=== PATIENT | male | born 1970 | race Caucasian/White ===

== ENCOUNTER 2021-10-12 18:47 | Outpatient (REF) | payer MEDICAID, SELFPAY ==
[2021-10-12 16:22] LABS: Abs Immature Grans 0.01 10^3/uL (0.0-0.06); Absolute Basophil Count 0.04 10^3/uL (0.0-0.2); Absolute Eosinophil Count 0.05 10^3/uL (0.0-0.7); Absolute Monocyte Count 0.37 10^3/uL (0.1-0.8); Absolute Neutrophil Count 2.35 10^3/uL (1.2-6.7); Basophils % 0.8; Eosinophils % 1.1; HCT 44.2 % (40.0-50.0); HGB 14.9 g/dL (13.5-17.5); Immature Grans % 0.2; Lymphocytes % 40.3; MCHC 33.7 % (32.0-36.0); MCV 86 fL (80-95); MPV 10.3 fL (8.0-11.0); Monocytes % 7.8; Neutrophils % 49.8; Platelet Count 234 10^3/uL (130-400); RBC 5.14 10^6/uL (4.36-5.78); RDW 12.2 % (11.8-14.1); RDW-SD 38.2 fL; WBC 4.72 10^3/uL (4.4-10.8)
[2021-10-12 16:57] LABS: ALT 39 U/L (16-63); AST 31 U/L (15-37); Albumin 4.1 g/dL (3.4-5.0); Alkaline Phosphatase 55 U/L (46-116); Anion Gap 9.8 mmol/L (3-11); BUN 19 mg/dL (7-18); Bilirubin, Total 0.8 mg/dL (0.2-1.0); CO2 27.2 mmol/L (21.0-32.0); CREATININE 1.3 mg/dL (0.70-1.30); Calcium 8.9 mg/dL (8.5-10.1); Calculated LDL 145 mg/dL (<100); Chloride 104 mmol/L (98-107); Cholesterol 213 mg/dL (<200); Glucose 115 mg/dL (74-106); HDL Cholesterol 50 mg/dL (40-60); Sodium 141 mmol/L (136-145); Total Protein 7.4 g/dL (6.4-8.2); Triglyceride 94 mg/dL (<150)
== END 2021-10-12 18:48 | disposition home or self-care (01) ==
LOC: NCHCN 18:47
PROVIDERS: Visit Provider Nurse Practitioner Family
DX: I10 Essential (primary) hypertension (principal); E78.1 Pure hyperglyceridemia; G43.909 Migraine, unspecified, not intractable, without status migrainosus; M25.561 Pain in right knee; Z71.89 Other specified counseling
CPT/HCPCS: 80053; 80061; 85025

== ENCOUNTER 2021-12-04 17:55 | Emergency (ER) | payer MEDICAID, SELFPAY ==
[2021-12-04] VITALS (8 sets, daily range): BP systolic 117–128; BP diastolic 72–98; PULSE 58–72; RESP 20; TEMP 36.4; O2SAT 95–99
--- NOTE | 2021-12-04 18:00 | RT.EKG_ITS ---
APPROVED REPORT Exam: Resting ECG Reason for Exam: Blurry vision, lightheadedness Patient Location: E HR:64 bpm ECG Measurements Heart Rate 64 AXIS VA 226 P 26 QRSd 93 QRS 40 QT 378 T 30 QTc 392 Conclusion Sinus rhythm...normal P axis, V-rate 60- 99 Prolonged VA interval...VA >210, V-rate 50- 90 ST elev, probable normal early repol pattern...ST elevation, age<55. Sinus. Normal axis. No STEMI. I have reviewed and interpreted ECG and agree with software generated interpretation.
--- NOTE | 2021-12-04 18:30 | DI.CT_ITS ---
Exam(s) CT HEAD WO EXAM: CT HEAD WO CLINICAL HISTORY: Dizziness. TECHNIQUE: Imaging Protocol: Axial computed tomography images with coronal and sagittal reformatted images were created and reviewed COMPARISON: No exams were available for comparison FINDINGS: There are no skull fractures. There is no fluid in the visualized paranasal sinuses. There is no evidence of intracranial hemorrhage, mass effect, or shift of midline structures. There are no extra-axial fluid collections. The ventricles are not enlarged or shifted and there is no blo od within the ventricular system nor within the basal cisterns. IMPRESSION: No acute intracranial findings on this noninfused CT scan of the brain. Called by myself to ER physician. RADIATION DOSE DELIVERED: 906.85mGy.cm Total DLP DATA REPOSITORY: All CT scans at this facility are submitted to the National Radiology Data Registry (NRDR) Dose Index Registry (DIR) with the [employer] (ACR). RADIATION OPTIMIZATION: All CT scans at this facility use at least one of these dose optimization te chniques: automated exposure control; mA and/or kV adjustment per patient size (includes targeted exa ms where dose is matched to clinical indication); or iterative reconstruction.
[2021-12-04 18:34] LABS: Abs Immature Grans 0.02 10^3/uL (0.0-0.06); Absolute Basophil Count 0.03 10^3/uL (0.0-0.2); Absolute Eosinophil Count 0.06 10^3/uL (0.0-0.7); Absolute Lymphocyte Count 3.11 10^3/uL (1.2-3.4); Absolute Monocyte Count 0.49 10^3/uL (0.1-0.8); Absolute Neutrophil Count 2.84 10^3/uL (1.2-6.7); Basophils % 0.5; Eosinophils % 0.9; HCT 41.4 % (40.0-50.0); HGB 14.4 g/dL (13.5-17.5); Immature Grans % 0.3; Lymphocytes % 47.5; MCH 29.4 pg (27.0-33.0); MCHC 34.8 % (32.0-36.0); MCV 85 fL (80-95); MPV 9.7 fL (8.0-11.0); Monocytes % 7.5; Neutrophils % 43.3; Platelet Count 233 10^3/uL (130-400); RBC 4.89 10^6/uL (4.36-5.78); RDW 12.5 % (11.8-14.1); WBC 6.55 10^3/uL (4.4-10.8)
--- NOTE | 2021-12-04 18:36 | ED.GENADUL_ITS ---
Discharge Plan Disposition Patient Disposition: HOME Condition: Stable Discharge Details Clinical Impression: Light-headedness Primary Care Provider: DEV GERARD ED Provider: Kathryn Rowan Home Meds and New Rx's Prescriptions: Continued propranolol 40 mg Tablet 40 mg PO DAILY sumatriptan 10 mg/actuation [place],Non-Aerosol 10 mg INTRANASAL PRN PRN Discharge Instructions Instructions: Lightheadedness (ED) Additional Instructions: At this time head CT is within normal limits your labs are largely within normal limits. Follow up with primary care provider in 3-5 days. Return to ED sooner if any worsening or concerns. Increase oral fluids. Referrals: DEV GERARD, WAREHOUSE WORKER [Primary Care Provider] - 5 days Discharge Data Discharge Date/Time-TO BE ENTERED AT DEPARTURE: 12/04/21 21:35 Medical Decision Making 51-year-old male presents to the ER with chief complaint of dizziness and lightheadedness since last night. He reports he does have a history of migraines and he thought that this was an onset of migraine took a sumatriptan and it did not affect his symptoms. He reports that symptoms have been constant. 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 Patient has a history of migraines and does take propranolol and sumatriptan for migraine preventative. Due to patient's age a cardiac work-up was ordered including EKG, serial troponin and head CT. He does have a benign exam. Initial troponin within normal limits, CBC shows no leukocytosis, BUN 21 creatinine 1.2 glucose 112 urinalysis within normal limits. CT head within normal limits. At this time patient has had a negative work-up a nd physical exam is not worrisome. Patient to be discharged home. Discussed home care, follow-up and strict return instructions. This text was generated using Tephaation system, please disregard any oddities of phrase or misspellings. Lab Data Lab results reviewed: Yes I reviewed the patient's lab results. Labs: Laboratory Tests Range/Units 12/04/21 12/04/21 12/04/21 18:20 18:20 20:40 WBC (4.4-10.8) 10^3/uL 6.55 RBC (4.36-5.78) 10^6/uL 4.89 Hgb (13.5-17.5) g/dL 14.4 Hct (40.0-50.0) % 41.4 MCV (80-95) fL 85 MCH (27.0-33.0) pg 29.4 MCHC (32.0-36.0) % 34.8 RDW (11.8-14.1) % 12.5 Plt Count (130-400) 10^3/uL 233 MPV (8.0-11.0) fL 9.7 Immature Gran % 0.3 Neutrophils % 43.3 Lymphocytes % 47.5 Monocytes % 7.5 Eosinophils % 0.9 Basophils % 0.5 Nucleated RBC % (0.0-0.3) % 0.0 Absolute Neutrophils (1.2-6.7) 10^3/uL 2.84 Absolute Lymphocytes (1.2-3.4) 10^3/uL 3.11 Absolute Monocytes (0.1-0.8) 10^3/uL 0.49 Absolute Eosinophils (0.0-0.7) 10^3/uL 0.06 Absolute Basophils (0.0-0.2) 10^3/uL 0.03 Sodium (136-145) mmol/L 140 Potassium (3.5-5.1) mmol/L 3.8 Chloride (98-107) mmol/L 103 Carbon Dioxide (21.0-32.0) mmol/L 28.6 Anion Gap (3-11) mmol/L 8.4 BUN (7-18) mg/dL 21 H Creatinine (0.70-1.30) mg/dL 1.2 Est GFR (CKD-EPI 2020) (mL/min/1.73m2) 72.76 Glucose (74-106) mg/dL 112 H Calcium (8.5-10.1) mg/dL 9.4 Magnesium (1.8-2.4) mg/dL 2.0 Total Bilirubin (0.2-1.0) mg/dL 0.5 AST (15-37) U/L 28 ALT (16-63) U/L 58 Alkaline Phosphatase (46-116) U/L 54 Troponin I (<or=60) ng/L < 50 Total Protein (6.4-8.2) g/dL 7.8 Albumin (3.4-5.0) g/dL 4.2 Urine Color (Yellow) Yellow Urine Clarity (Clear) Clear Urine pH (5-8) 5.5 Ur Specific [place] (1.005-1.025) >= 1.030 H Urine Protein (Negative) mg/dL Negative Urine Ketones (Negative) mg/dL Negative Urine Blood (Negative) Negative Urine Nitrite (Negative) Negative Urine Bilirubin (Negative) Negative Urine Urobilinogen (Up TO 0.2) EU/dL 0.2 Ur Leukocyte Esterase (Negative) Negative Urine Glucose (Negative) mg/dL Negative Range/Units 12/04/21 12/04/21 20:41 21:07 WBC (4.4-10.8) 10^3/uL RBC (4.36-5.78) 10^6/uL Hgb (13.5-17.5) g/dL Hct (40.0-50.0) % MCV (80-95) fL MCH (27.0-33.0) pg MCHC (32.0-36.0) % RDW (11.8-14.1) % Plt Count (130-400) 10^3/uL MPV (8.0-11.0) fL Immature Gran % Neutrophils % Lymphocytes % Monocytes % Eosinophils % Basophils % Nucleated RBC % (0.0-0.3) % Absolute Neutrophils (1.2-6.7) 10^3/uL Absolute Lymphocytes (1.2-3.4) 10^3/uL Absolute Monocytes (0.1-0.8) 10^3/uL Absolute Eosinophils (0.0-0.7) 10^3/uL Absolute Basophils (0.0-0.2) 10^3/uL Sodium (136-145) mmol/L Potassium (3.5-5.1) mmol/L Chloride (98-107) mmol/L Carbon Dioxide (21.0-32.0) mmol/L Anion Gap (3-11) mmol/L BUN (7-18) mg/dL Creatinine (0.70-1.30) mg/dL Est GFR (CKD-EPI 2020) (mL/min/1.73m2) Glucose (74-106) mg/dL Calcium (8.5-10.1) mg/dL Magnesium (1.8-2.4) mg/dL Total Bilirubin (0.2-1.0) mg/dL AST (15-37) U/L ALT (16-63) U/L Alkaline Phosphatase (46-116) U/L Troponin I (<or=60) ng/L Cancelled Total Protein (6.4-8.2) g/dL Albumin (3.4-5.0) g/dL Urine Color (Yellow) Cancelled Urine Clarity (Clear) Cancelled Urine pH (5-8) Cancelled Ur Specific [place] (1.005-1.025) Cancelled Urine Protein (Negative) mg/dL Cancelled Urine Ketones (Negative) mg/dL Cancelled Urine Blood (Negative) Cancelled Urine Nitrite (Negative) Cancelled Urine Bilirubin (Negative) Cancelled Urine Urobilinogen (Up TO 0.2) EU/dL Cancelled Ur Leukocyte Esterase (Negative) Cancelled Urine Glucose (Negative) mg/dL Cancelled HPI General Mode of arrival: ambulatory . Date/Time Provider Initiated Documentation: 12/04/21 18:05 . Limitations to Documentation: no limitations . Information obtained by: patient, RN notes reviewed and old records reviewed . HPI Narrative: 51-year-old male presents to the ER with chief complaint of dizziness and lightheadedness since last night. He reports he does have a history of migraines and he thought that this was an onset of migraine took a sumatriptan and it did not affect his symptoms. He reports that symptoms have been constant. 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 He denies any chest pain no shortness of breath no abdominal pain no problems urinating no nausea vomiting or diarrhea or any other associated symptoms. He denies any recent head injury. He is alert and oriented x4, no focal neurodeficits noted on exam. Related Data Home Medications Medication Instructions Recorded Confirmed propranolol 40 mg tablet 40 mg PO DAILY 12/04/21 12/04/21 sumatriptan 10 mg/actuation nasal 10 mg intranasal PRN PRN 12/04/21 12/04/21 spray Allergies Allergy/AdvReac Type Severity Reaction Status Date / Time No Known Allergies Allergy Unverified 12/04/21 18:02 General Stated Complaint: Dizzy/Sync EVIE: 3 Review of Systems All systems reviewed & are unremarkable except as noted in HPI and below Constitutional Constitutional: Denies headache(s) ENT Ears, Nose, Mouth, and Throat: Denies headache(s) Cardiovascular Cardiovascular: Reports lightheadedness Neurologic Neurologic: Reports as per HPI, Denies confusion, Denies headache(s), Denies lack of coordination, Denies localized weakness and Denies other visual disturbances Psychiatric Psychiatric: Denies confusion PFSH All Active Problems (Updated 12/04/21 @ 21:12 by Kathryn Rowan NP) Light-headedness (Acute) Medical History Migraine headache Surgical History History of knee replacement Social History Smoking/Tobacco Use Status: Never Smoking risk assessment performed?: Yes Alcohol Intake: current Alcohol Intake frequency: a few times a month Drug use: Never Substance use type: does not use Do you feel safe at home: Yes Do you feel safe in your relationship?: Yes Exam Narrative Exam Narrative: Constitutional: Alert and oriented x3. Appears stated age. Normal body habitus. Head: Normocephalic, no trauma. Eyes: Pupils PERRL, Red reflex noted, EOM's intact. Eyelids symmetrical without lesions, discharge, or swelling. ENT: Bilateral TM's WNL, External ear normal to inspection, no mastoid TTP, swelling, or erythema, Nasal turbinates WNL, no nasal discharge. Normal dentition, Posterior pharynx WNL, no exudate. Chest: RRR, Normal S1, S2, distal pulses intact. Resp: Lungs clear to auscultation bilaterally, no wheezes, rales, or rhonchi. Abdomen: Soft, non-distended, Normoactive bowel sounds all 4 quads. Musculoskeletal: Normal gait, 5/5 strength to all four extremities. Skin: No suspicious rashes or lesions. Capillary refill less than 2 sec. Neurologic: Cranial nerves II-XII intact. Alert and oriented x 3. Motor: No deficits noted. Sensory: Intact bilaterally all 4 extremities. Reflexes: DTR's intact bilaterally.. Hematologic/Lymphatic: No ecchymosis, no lymphadenopathy. Course Vital Signs Vital signs: Vital Signs Temperature 36.4 C L 12/04/21 17:59 Pulse 72 12/04/21 17:59 Respiratory Rate 20 12/04/21 17:59 Blood Pressure 128/98 H 12/04/21 17:59 Pulse Oximetry 99 12/04/21 17:59 Temperature 36.4 C L 12/04/21 17:59 Temperature Source Tympanic 12/04/21 17:59 Pulse 72 12/04/21 17:59 Respiratory Rate 20 12/04/21 17:59 Respiratory Effort 12/04/21 18:29 Blood Pressure 128/98 H 12/04/21 17:59 Blood Pressure Position Sitting 12/04/21 17:59 Pulse Oximetry 99 12/04/21 17:59 Oxygen Delivery Method Room Air 12/04/21 17:59 Oxygen Flow Rate 0 12/04/21 17:59 Pain Level 0 12/04/21 17:59
[2021-12-04] MEDS: Normal Saline 1,000 ML 1000 ML IV (18:48)
[2021-12-04 19:06] LABS: ALT 58 U/L (16-63); AST 28 U/L (15-37); Albumin 4.2 g/dL (3.4-5.0); Alkaline Phosphatase 54 U/L (46-116); Anion Gap 8.4 mmol/L (3-11); BUN 21 mg/dL (7-18); Bilirubin, Total 0.5 mg/dL (0.2-1.0); CO2 28.6 mmol/L (21.0-32.0); CREATININE 1.2 mg/dL (0.70-1.30); Calcium 9.4 mg/dL (8.5-10.1); Chloride 103 mmol/L (98-107); Estimated GFR 72.76 (mL/min/1.73m2); Glucose 112 mg/dL (74-106); Potassium 3.8 mmol/L (3.5-5.1); Sodium 140 mmol/L (136-145); Total Protein 7.8 g/dL (6.4-8.2); Troponin I < 50 ng/L (<or=60)
--- NOTE | 2021-12-04 20:34 | DI.VRAD_ITS ---
PROCEDURE INFORMATION: Exam: CT Head Without Contrast Exam date and time: 12/04/2021 20:05 Age: 51 years old Clinical indication: Dizziness TECHNIQUE: Imaging protocol: Computed tomography of the head without contrast. COMPARISON: No relevant prior studies available. FINDINGS: Brain: Mild cerebral atrophy. No edema or hemorrhage. Cerebral ventricles: No ventriculomegaly. Paranasal sinuses: No acute sinusitis. Mastoid air cells: No mastoid effusion. Bones/joints: No acute fracture. Soft tissues: No suspicious lesions. IMPRESSION: No acute intracranial findings. Dictated and Authenticated by: Allison Malloy MD. Ordering:ANNIE Peralta MD
[2021-12-04 21:23] LABS: Bilirubin Negative (Negative); Blood Negative (Negative); Clarity Clear (Clear); Glucose Negative (Negative); Ketones Negative (Negative); Leukocyte Esterase Negative (Negative); Nitrite Negative (Negative); Specific Gravity >= 1.030 (1.005-1.025); Urobilinogen 0.2 EU/dL (Up TO 0.2); pH 5.5 (5-8)
== END 2021-12-04 21:35 | disposition home or self-care (01) ==
PROVIDERS: Emergency Provider Registered Nurse Emergency; PCP Nurse Practitioner Family
DX: R42 Dizziness and giddiness (principal)
CPT/HCPCS: 80053; 93005; 96360; 99284; 70450; 81003; 83735; 84484; 85025; 93010; 99285

== ENCOUNTER 2022-01-25 12:59 | Outpatient (REF) | payer MEDICAID, SELFPAY ==
[2022-01-25 15:17] LABS: Absolute Basophil Count 0.05 10^3/uL (0.0-0.2); Absolute Eosinophil Count 0.02 10^3/uL (0.0-0.7); Absolute Monocyte Count 0.41 10^3/uL (0.1-0.8); Absolute Neutrophil Count 1.72 10^3/uL (1.2-6.7); Basophils % 1.1; Eosinophils % 0.4; HCT 41.3 % (40.0-50.0); HGB 14.1 g/dL (13.5-17.5); Lymphocytes % 52.2; MCH 29.1 pg (27.0-33.0); MCHC 34.1 % (32.0-36.0); MCV 85 fL (80-95); MPV 10.2 fL (8.0-11.0); Monocytes % 8.9; Neutrophils % 37.4; Platelet Count 248 10^3/uL (130-400); RBC 4.85 10^6/uL (4.36-5.78); RDW 12.4 % (11.8-14.1); RDW-SD 38.4 fL
[2022-01-25 15:56] LABS: Hemoglobin A1C 5.8 % (<5.7)
[2022-01-25 16:12] LABS: ALT 61 U/L (16-63); AST 30 U/L (15-37); Albumin 4.2 g/dL (3.4-5.0); Alkaline Phosphatase 50 U/L (46-116); Anion Gap 10.3 mmol/L (3-11); BUN 28 mg/dL (7-18); Bilirubin, Total 0.9 mg/dL (0.2-1.0); CO2 25.7 mmol/L (21.0-32.0); Calcium 9.3 mg/dL (8.5-10.1); Chloride 102 mmol/L (98-107); Estimated GFR 90.56 (mL/min/1.73m2); Glucose 108 mg/dL (74-106); Potassium 4.1 mmol/L (3.5-5.1); Sodium 138 mmol/L (136-145); Total Protein 7.4 g/dL (6.4-8.2)
== END 2022-01-25 13:00 | disposition home or self-care (01) ==
LOC: NCHCN 12:59
PROVIDERS: PCP Nurse Practitioner Family; Visit Provider Family Medicine
DX: R05.9 Cough, unspecified (principal); R53.83 Other fatigue
CPT/HCPCS: 80053; 83036; 85025

== ENCOUNTER 2022-09-01 10:49 | Day surgery (SDC) | payer MEDICAID, SELFPAY ==
--- NOTE | 2022-08-31 19:51 | PDOC.DSDIS_ITS ---
Date of service: 09/01/22 Time of Service: 12:10 Discharge Plan Disposition Patient Disposition: Home Condition: Good Discharge Details Reason For Visit: Screening colonoscopy Attending Provider: Heath Mercedes Primary Care Provider: DEV GERARD Home Meds and New Rx's Prescriptions: Continued propranolol 40 mg tablet 40 mg PO BID sumatriptan succinate 100 mg tablet 100 mg PO ONCE Discontinued bisacodyl [Dulcolax (bisacodyl)] 5 mg tablet,delayed release (DR/EC) 5 mg PO ONCE Qty: 4 0RF Rx Instructions: Take per colonoscopy instructions provided by ordering providers office polyethylene glycol 3350 17 gram/dose powder 17 g PO ONCE Qty: 238 0RF Rx Instructions: Take per colonoscopy instructions provided by ordering providers office Discharge Instructions Instructions: Diverticulosis (GEN), Diverticulosis Diet (GEN) Additional Instructions: Sandhya, we were able to complete your colonoscopy today without any difficulty . The quality of your prep was excellent. I did not see any signs of tumors or polyps anywhere within your large intestine. Incidentally, you do have just a few diverticula within your sigmoid colon. These are small weak spots in the colon wall. They can become infected and inflamed. When that happens, patients typically have pain on the left side of their abdomen, and sometimes across the lower part. When the diverticula are inflamed, that is called diverticulitis, and it is typically treated with antibiotics. Based on the very few that you have, I do not suspect these are any problem at all. I have provided some general information here regarding diverticulosis. I think the best strategy overall is to have a balanced diet that is rich in fibers, staying well- hydrated, and avoiding signs and symptoms of constipation. With an otherwise negative colonoscopy, you do not need another screening test for 10 years. 1. If tolerated, consume a soft, low fiber diet for 1-2 days. 2[address] Do not drive, drink alcohol, operate machinery, make critical decisions, or do activities that require coordination or balance for 24 hours. 3. Because air was put into your colon during the procedure, expelling air from your rectum (passing gas or farting) is normal. 4. You may not have a bowel movement for 1-3 days because of the colonoscopy prep. This is normal. 5. Go directly to the emergency room if you notice any of the following: Develop chills (warm to touch), or if you have a thermometer and your temperature is above 101 Difficulty breathing or difficultly swallowing Persistent vomiting Severe abdominal pain, other than gas cramps Severe chest pain Black, tarry stools Any bleeding ? exceeding one tablespoon 6. Call your physician if the site where your intravenous was started becomes red, swollen, painful, and warm to touch. 7. Your physician has reviewed your pre-procedure medications. Please continue to take those medications as previously ordered. You will be given specific information/education regarding any changes to your medications before leaving. Activity:: Activity as Tolerated Diet:: As Tolerated Discharge Orders Discharge Orders: Discharge Order (Routine); Ordered 08/31/22 Ordered By: Heath Mercedes DS: Diagnosis Discharge Diagnosis (1) Screen for colon cancer: Status: Acute Asessment and Plan: Negative screening colonoscopy
--- NOTE | 2022-08-31 19:52 | W.COLOREPORT ---
Date of service: 09/01/22 Time of Service: 12:12 Colonoscopy Report Date of procedure: 09/01/22 Pre-op diagnosis general: Screening colonoscopy Post-op diagnosis procedure note: other (Diverticulosis) Procedure: Colonoscopy Surgeon: Heath Mercedes Anesthesia Type: General:No Airway Estimated blood loss (mL): 0 Pathology: none sent Complications: None Disposition: same day Indications: Kaushal is a 52 year old man who is here for a screening colonoscopy Prep: Miralax/Dulcolax Procedure Start Time: 11:52 Procedure End Time: 12:02 Retraction Time: 6 Findings: Very rare sigmoid diverticulosis Procedure Description: After the induction of monitored anesthetic care, and with the patient in left lateral decubitus position, I began by performing an external anorectal exam.? Perineum and skin were normal, as was the anal verge.? There was no evidence of external hemorrhoids.? Next, I performed a digital rectal exam.? I did not appreciate any abnormal findings.? Next, I advanced a colonoscope into the rectal vault.? I performed retroflexion.? This appeared normal.? Using insufflation, I then advanced the colonoscope beyond the rectal folds and into the sigmoid colon before advancing towards the cecum.? The quality of the prep was excellent.? There were just a few rare scattered sigmoid diverticuli. The scope was noted to be in the cecum by identification of the ileocecal valve and appendiceal orifice.? I then began withdrawing the colonoscope using repeated irrigation as necessary for full evaluation of the colonic mucosa. ?Once the scope was withdrawn to the level of the rectum, great care was taken to examine portions of the rectal folds.? Finally, the scope was withdrawn and the patient was brought to the same-day surgery recovery unit as the anesthetic wore off. ?The findings and instructions were shared with the patient prior to discharge.
[2022-09-01 10:53] VITALS: BP 118/83; PULSE 62; RESP 18; TEMP 35.9; O2SAT 97
[2022-09-01] MEDS: Lactated Ringers 1,000 ML 80 ML IV (11:22)
--- NOTE | 2022-09-01 11:34 | ANES.PREOP_ITS ---
General Info Date of Service Date Performed: 09/01/22 Height: 5 ft 11 in Weight: 91.8 kg Body Mass Index (BMI): 28.2 Surgical Procedure: Operation Date: 09/01/22 11:20 Proposed Procedure Side Surgeon p Conner Mercedes MD Meds Allergies and Home Medications Allergies Allergy/AdvReac Type Severity Reaction Status Date / Time topiramate [From Topamax] Allergy Severe Verified 09/01/22 11:12 Home Medication Medication Instructions Recorded propranolol 40 mg tablet 40 mg PO BID 01/13/22 sumatriptan succinate 100 mg tablet 100 mg PO ONCE 01/13/22 Current Visit Medications: Current Medications Generic Name Dose Route Start Last Admin Trade Name Freq PRN Reason Stop Dose Admin Hyoscyamine Sulfate 0.125 mg 08/31/22 19:53 Hyoscyamine 0.125 Mg Sl/Oral/Chew SL 09/30/22 19:52 DIRECTED PRN Ringer's Solution 1,000 mls @ 80 mls/hr 09/01/22 06:00 09/01/22 11:22 IV 09/30/22 23:59 80 mls/hr INFUSION CARY Administration IV Miscellaneous Supplies 1 each 09/01/22 06:00 Iv Access IV 09/30/22 23:59 DIRECTED CARY Ondansetron HCl 4 mg 08/31/22 19:53 Ondansetron 4 Mg/2 Ml Vial IVP 09/30/22 19:52 Q4H PRN PRN Nausea / Vomiting Sodium Chloride 0 ml 09/01/22 06:00 Normal Saline Flush 10 Ml Syr IV 09/30/22 23:59 PRN PRN Sodium Chloride 0 ml 09/01/22 06:00 Normal Saline 10 Ml Vial IJ 09/30/22 23:59 DIRECTED PRN Sterile Water 0 ml 09/01/22 06:00 Water,Injection,Sterile 10 Ml Vial IJ 09/30/22 23:59 DIRECTED PRN PFSH Active Problems Active Problems: Problem Status Onset Code Screen for colon cancer Z12.11 Hypertension I10 Anxiety F41.9 Medical History Medical History Degeneration of intervertebral disc of lumbar region Disorder of tendon of right shoulder region Hyperlipidemia Hypertriglyceridemia Knee pain, right Left upper arm pain Migraine headache Nevus, atypical Surgical History Surgical History History of knee replacement Tobacco Smoking/Tobacco Use Status: Never Alcohol Alcohol Intake: current Alcohol intake frequency: holidays/special occasions only Alcohol type: beer Substance Use Substance use: Never Substance use type: does not use Vital Signs and Lab Results Vital Signs Most Recent Vital Signs in EMR: Most Recent Vital Signs Temp Pulse Resp BP Pulse Ox 35.9 C L 62 18 118/83 97 09/01/22 10:53 09/01/22 10:53 09/01/22 10:53 09/01/22 10:53 09/01/22 10:53 Lab Results Blood Type / Crossmatch: No Data to Display Complete Blood Count: No Data to Display Complete Metabolic Panel: No Data to Display Liver Function Panel: No Data to Display Coagulation Panel: 2 No Data to Display Cardiac Panel: No Data to Display Arterial Blood Gas: No Data to Display Venous Blood Gas: No Data to Display Pancreas Panel: No Data to Display Thyroid Panel: No Data to Display Infectious Disease: No Data to Display Blood Cultures: No Data to Display Toxicology Panel: No Data to Display Anesthesia Assessment and Plan Anesthesia History Personal History: No History of Anesthesia Complications Family History: No Family History of Anesthesia Complications Exercise Tolerance Exercise Tolerance: Metabolic Equivalents>4 Pertinent Negatives Pertinent Negatives: No Symptoms of GERD, No Major Cardiovascular Symptoms or Complaints and No Major Pulmonary Symptoms or Complaints Cardiac & Pulmonary Exam Cardiac Exam: Normal S1/S2 Heart Sounds Pulmonary Exam: Clear Bilateral Breath Sounds Implantable Cardiac Device Does patient have a Pacemaker or an ICD?: No Airway Exam Known Difficult Airway: No Mallampati Class: 1 Mouth Opening: Normal (> 3cm) Thyromental Distance: Greater than 3 cm Neck Range of Motion: Full ROM Neck Circumference: Normal Teeth Condition: Normal Dentition ASA Classification ASA Score: ASA 2 Emergency Case?: No NPO Status NPO Status: NPO Clears >2 hours, Solids >8 hours Anesthesia Plan Resuscitation Status: Full Code Anesthesia Technique: General Anesthesia Airway Planned: Natural Airway Monitors Used: Standard Monitors
[2022-09-01 11:35] VITALS: BMI 28.2
[2022-09-01 12:08] VITALS: BP 102/68; PULSE 84; RESP 16; TEMP 36.3; O2SAT 94
[2022-09-01 12:39] VITALS: BP 113/83; PULSE 64; RESP 18; TEMP 36.6; O2SAT 96
--- NOTE | 2022-09-01 12:44 | W.ANESPOSTOP ---
Postoperative Evaluation Date, Time and Location Date Performed: 09/01/22 Time Performed: 12:44 Patient Location: Day Surgery Unit Vital Signs Most Recent Imported Vital Signs: Most Recent Vital Signs Temp Pulse Resp BP Pulse Ox 36.3 C L 84 16 102/68 94 09/01/22 12:08 09/01/22 12:08 09/01/22 12:08 09/01/22 12:08 09/01/22 12:08 Pain Score Most Recent Pain Score: Most Recent Pain Score Pain Level 0 09/01/22 12:08 Assessment Mental Status: Awake (Alert & Oriented to Patient Baseline) Airway and Respiratory Function: Patent airway with normal (patient baseline) respiratory exam Cardiovascular Function: Hemodynamically Stable Hydration Status: Adequately Hydrated Nausea & Vomiting: No Nausea or Vomiting Pain: Pt. Denies Any Pain Peripheral Nerve Block: Patient did not receive a nerve block
== END 2022-09-01 10:50 | disposition home or self-care (01) ==
PROVIDERS: PCP Nurse Practitioner Family; Visit Provider Surgery
PROC: 0DJD8ZZ Inspection of Lower Intestinal Tract, Via Natural or Artificial Opening Endoscopic (ICD-10-PCS; CPT 45378; principal; 2022-09-01 11:15)
DX: Z12.11 Encounter for screening for malignant neoplasm of colon (principal); K57.30 Diverticulosis of large intestine without perforation or abscess without bleeding
CPT/HCPCS: 45378

== ENCOUNTER 2022-10-25 20:17 | Outpatient (REF) | payer MEDICAID, SELFPAY ==
[2022-10-25 19:59] LABS: Hemoglobin A1C 5.8 % (<5.7)
[2022-10-25 20:09] LABS: Anion Gap 10.3 mmol/L (3-11); BUN 35 mg/dL (7-18); CO2 25.7 mmol/L (21.0-32.0); CREATININE 1.5 mg/dL (0.70-1.30); Calculated LDL 171 mg/dL (<100); Chloride 104 mmol/L (98-107); Cholesterol 269 mg/dL (<200); Estimated GFR 55.32 (mL/min/1.73m2); Glucose 104 mg/dL (74-106); HDL Cholesterol 50 mg/dL (40-60); Potassium 4.3 mmol/L (3.5-5.1); Sodium 140 mmol/L (136-145); Triglyceride 240 mg/dL (<150)
[2022-10-26 18:25] LABS: PSA, Screening 0.4 ng/mL (<=3.5)
== END 2022-10-25 20:18 | disposition home or self-care (01) ==
LOC: NCHCN 20:17
PROVIDERS: PCP Nurse Practitioner Family; Visit Provider Nurse Practitioner Family
DX: E78.5 Hyperlipidemia, unspecified (principal); R73.03 Prediabetes; R39.12 Poor urinary stream; Z12.5 Encounter for screening for malignant neoplasm of prostate
CPT/HCPCS: 80048; 80061; 84153; 83036

== ENCOUNTER 2023-02-20 10:41 | Outpatient (REF) | payer MEDICAID, SELFPAY ==
[2023-02-20 16:43] LABS: Anion Gap 8.1 mmol/L (3-11); BUN 27 mg/dL (7-18); CO2 24.9 mmol/L (21.0-32.0); CREATININE 1.1 mg/dL (0.70-1.30); Calculated LDL 131 mg/dL (<100); Chloride 104 mmol/L (98-107); Cholesterol 230 mg/dL (<200); Estimated GFR 80.27 (mL/min/1.73m2); Glucose 102 mg/dL (74-106); HDL Cholesterol 45 mg/dL (40-60); Potassium 4.4 mmol/L (3.5-5.1); Sodium 137 mmol/L (136-145); Triglyceride 274 mg/dL (<150)
== END 2023-02-20 10:42 | disposition home or self-care (01) ==
LOC: NCHCN 10:41
PROVIDERS: PCP Nurse Practitioner Family; Visit Provider Nurse Practitioner Family
DX: E78.5 Hyperlipidemia, unspecified (principal); R94.4 Abnormal results of kidney function studies
CPT/HCPCS: 80048; 80061

== ENCOUNTER 2023-07-15 08:14 | Emergency (ER) | payer MEDICAID, SELFPAY ==
[2023-07-15 08:16] VITALS: BP 187/112; PULSE 93; RESP 16; TEMP 36.1; O2SAT 97
--- NOTE | 2023-07-15 08:36 | DI.RAD_ITS ---
Exam(s) XR KNEE LT 4V AP,LAT,AYDEN,PAT EXAM: XR KNEE LT 4V AP,LAT,AYDEN,PAT CLINICAL HISTORY: L knee pain after twisting injury x1+ months. TECHNIQUE: 2D digital imaging was performed of the left knee. Four images were obtained. Merchant, AP, lateral and PA tunnel views were obtained. COMPARISON: No exams were available for comparison FINDINGS: BONES: No acute fracture is present. No bony destructive lesion is seen. JOINTS: There is chondrocalcinosis in the femoral tibial joints which can be seen with CPPD arthropat hy. There is a tiny joint effusion. No loose body. SOFT TISSUE: There is a tiny density lateral to the lateral femoral condyle which appears chronic. IMPRESSION: Mild arthrosis of the left knee. Small joint effusion. DATA REPOSITORY: RADIATION DOSE DELIVERED:
--- NOTE | 2023-07-15 08:39 | W.ED.GENAD ---
Discharge Plan Disposition Patient Disposition: Home Condition: Good Discharge Details Clinical Impression: Elevated blood pressure reading, Acute pain of left knee Primary Care Provider: Rena Santoyo ED Provider: Christin Greenberg Home Meds and New Rx's Prescriptions: Continued propranolol 40 mg tablet 40 mg PO BID sumatriptan succinate 100 mg tablet 100 mg PO ONCE Discharge Instructions Instructions: Knee Pain (ED) Additional Instructions: Please follow-up with your primary care provider on the as scheduled to discuss your blood pressure. I also recommend that you follow-up with orthopedics for further evaluation and management, a referral has been made for you For the knee pain I recommend that you elevate, ice, use topical Voltaren gel and Aspercreme/Bengay. Wear knee brace as needed. Only do the exercises as tolerated, being sure not to strain yourself. I recommend that you stop taking the ibuprofen, may use Tylenol as needed. Return to emergency care if you develop new chest pain, shortness of breath, severe headache, episodes of passing out, or if you are very worried and need to be rechecked again immediately Referrals: [facility] [Provider Group] HPI General Date/Time Provider Initiated Documentation: 07/15/23 08:36. HPI Narrative: Kaushal is a 53-year-old male who presents to the emergency department today for evaluation of left knee pain. He reports that he initially injured his knee while playing basketball, says that he twisted his knee and continue playing. He had this evaluated, was told he believes it is a meniscal injury and started with physical therapy. He has had 3 sessions of physical therapy, but says that the pain has increased in intensity since then. He is concerned he may have a fracture. He has been able to ambulate with limited weightbearing using a crutch and a knee brace. Knee pain is located to the medial aspect of the knee, worsened with weightbearing and with flexion. Occasional mild swelling to the medial aspect of the knee with extensive walking. He denies hip pain, ankle pain/injury, distal numbness/tingling, previous injury to this knee. He did injure his meniscus in his right knee, had surgery for this. He denies significant past medical history. He has been taking ibuprofen with limited improvement in symptoms. Related Data Home Medications Medication Instructions Recorded Confirmed propranolol 40 mg tablet 40 mg PO BID 01/13/22 09/01/22 sumatriptan succinate 100 mg tablet 100 mg PO ONCE 01/13/22 09/01/22 Allergies Allergy/AdvReac Type Severity Reaction Status Date / Time topiramate [From Topamax] Allergy Severe Verified 09/01/22 11:12 General Stated Complaint: Orthopedic EVIE: 4 Review of Systems Narrative: see HPI Exam Const General: cooperative, comfortable, no acute distress and well developed Nutritional Appearance: average body habitus Resp Effort & Inspection: normal respiratory effort and able to speak in complete sentences Extrem Right lower extremity: full ROM, normal capillary refill, no joint enlargement and knee Details: tenderness Location: of the medial joint line and knee ligament exam normal (no obvious joint laxity) Details: valgus stress test abnormal and varus stress test abnormal; no abrasions, no ecchymosis, no crepitus and no foreign bodies; no edema Left lower extremity: normal to inspection Course Vital Signs Vital signs: Vital Signs Temperature 36.1 C L 07/15/23 08:16 Pulse 93 H 07/15/23 08:16 Respiratory Rate 16 07/15/23 08:16 Blood Pressure 187/112 H 07/15/23 08:16 Pulse Oximetry 97 07/15/23 08:16 Temperature 36.1 C L 07/15/23 08:16 Temperature Source Tympanic 07/15/23 08:16 Pulse 93 H 07/15/23 08:16 Respiratory Rate 16 07/15/23 08:16 Blood Pressure 187/112 H 07/15/23 08:16 Blood Pressure Position Sitting 07/15/23 08:16 Pulse Oximetry 97 07/15/23 08:16 Oxygen Delivery Method Room Air 07/15/23 08:16 Oxygen Flow Rate 0 07/15/23 08:16 Pain Level 4 07/15/23 08:24 Medical Decision Making Kaushal is a 53-year-old male who presents to the emergency department today for evaluation of left knee pain. He reports that he initially injured his knee while playing basketball, says that he twisted his knee and continued playing. He had this evaluated, was told he believes it is a meniscal injury and started with physical therapy. He has had 3 sessions of physical therapy, but says that the pain has increased in intensity since then. He is concerned he may have a fracture. He has been able to ambulate with limited weightbearing using a crutch and a knee brace. Knee pain is located to the medial aspect of the knee, worsened with weightbearing and with flexion. Occasional mild swelling to the medial aspect of the knee with extensive walking. He denies hip pain, ankle pain/injury, distal numbness/tingling, previous injury to this knee, snapping/cracking/popping/catching of the knee with movement. He did injure his meniscus in his right knee, had surgery for this. He denies significant past medical history. He has been taking ibuprofen with limited improvement in symptoms. Physical exam reassuring. Mild tenderness palpation of medial joint line. No warmth/swelling/erythema. Painless range of motion to hip and ankle. No tenderness to palpation of femur or tibia/fib. No overlying lacerations/skin tears/abrasions. Vital signs significant for hypertension. DDx includes but is not limited to: Meniscal injury, MCL or other ligamentous injury, fracture, sprain I independently interpreted the following tests: Knee xray, no obvious fracture or dislocation noted. This was reviewed with Dr Falk, attending physician While in the emergency department Kaushal received p.o. ibuprofen. Discussed with patient hypertension and importance of follow-up with PCP for management of this. He denies any symptoms such as chest pain, shortness of breath, vision change, usual headaches, dizziness. History and presentation today consistent with muscular/ligamentous/soft tissue injury. Recommend follow-up with orthopedics for further evaluation and management. Advised use of crutches and knee brace for comfort, as well as topical medications for pain control. Advised cutting down on ibuprofen, as this may be contributing to hypertension. He is agreeable with plan of care. Imaging Data Radiologic Study: Radiologist's impression: Exam(s) XR KNEE LT 4V AP,LAT,AYDEN,PAT EXAM: XR KNEE LT 4V AP,LAT,AYDEN,PAT CLINICAL HISTORY: L knee pain after twisting injury x1+ months. TECHNIQUE: 2D digital imaging was performed of the left knee. Four images were obtained. Merchant,AP, lateral and PA tunnel views were obtained. COMPARISON: No exams were available for comparison FINDINGS: BONES: No acute fracture is present. No bony destructive lesion is seen. JOINTS: There is chondrocalcinosis in the femoral tibial joints which can be seen with CPPD arthropathy. There is a tiny joint effusion. No loose body. SOFT TISSUE: There is a tiny density lateral to the lateral femoral condyle which appears chronic. IMPRESSION: Mild arthrosis of the left knee. Small joint effusion. Quality:SDOH Health Related Social Needs: No Data to Display PFSH All Active Problems (Updated 07/15/23 @ 09:27 by Christin Brooks) Acute pain of left knee (Acute) Elevated blood pressure reading (Acute) Screen for colon cancer (Acute) Hypertension (Chronic) Anxiety (Chronic) Medical History (Updated 07/15/23 @ 09:27 by Christin Brooks) Hypertriglyceridemia Knee pain, right Disorder of tendon of right shoulder region Hyperlipidemia Degeneration of intervertebral disc of lumbar region Nevus, atypical Left upper arm pain Migraine headache Surgical History (Updated 09/02/22 @ 13:43 by Ping Coto) History of colonoscopy (~08/2022) History of knee replacement Social History Smoking/Tobacco Use Status: Never Smoking risk assessment performed?: Yes Alcohol Intake: current Alcohol Intake frequency: holidays/special occasions only Alcohol type: beer Drug use: Never Substance use type: does not use Housing: house Do you feel safe at home: Yes Do you feel safe in your relationship?: Yes
[2023-07-15] MEDS: Ibuprofen 800 MG TAB PO (09:21)
[2023-07-15 10:07] VITALS: BP 175/107; PULSE 80; RESP 16; TEMP 36.5; O2SAT 97
== END 2023-07-15 10:11 | disposition home or self-care (01) ==
PROVIDERS: Emergency Provider Nurse Practitioner Family; PCP Nurse Practitioner Family
DX: M25.561 Pain in right knee (principal); R03.0 Elevated blood-pressure reading, without diagnosis of hypertension
CPT/HCPCS: 99283; 73564

== ENCOUNTER → 2023-08-03 00:27 | Outpatient (CLI) | payer MEDICAID, SELFPAY ==
--- NOTE | 2023-08-03 07:15 | DI.MRI_ITS ---
Exam(s) MR LOWER JOINT LT WO EXAM: MR LOWER JOINT LT WO CLINICAL HISTORY: LEFT KNEE PAIN, acute pain, M25.562. TECHNIQUE: Multiplanar multisequence MRI was performed. COMPARISON: CR XR KNEE LT 4V AP,LAT,AYDEN,PAT from 07/15/2023 FINDINGS: BONES: There is no fracture or contusion pattern. JOINTS: Mild chondromalacia at the medial aspect of the medial patellar facet. No effusion is presen t. TENDONS: Extensor mechanism: Unremarkable. Medial retinaculum: Unremarkable. Lateral retinaculum: Unremarkable. Popliteus: Unremarkable. MUSCLES: Unremarkable. MENISCI: There is a tear of the body and posterior horn of the medial meniscus. The lateral meniscus is unremarkable. SOFT TISSUES: Unremarkable. LIGAMENTS: Anterior Cruciate: Unremarkable. Posterior Cruciate: Unremarkable. Medial Collateral:There is a small amount of edema seen around the medial collateral ligament which a ppears intact but this may represent a sprain. Lateral Collateral: Unremarkable. OTHER: IMPRESSION: 1. Tear of the body and posterior horn of the medial meniscus. 2. No evidence of a ligament tear. 3. Mild chondromalacia in the medial aspect of the medial patellofemoral joint. DATA REPOSITORY:
== END ==
PROVIDERS: PCP Nurse Practitioner Family; Visit Provider Student in an Organized Health Care Education/Training Program
DX: M23.222 Derangement of posterior horn of medial meniscus due to old tear or injury, left knee (principal)
CPT/HCPCS: 73721

== ENCOUNTER 2023-09-13 09:55 | Day surgery (SDC) | payer MEDICAID, SELFPAY ==
--- NOTE | 2023-09-13 09:21 | W.PM.DSUDISC ---
Date of service: 09/13/23 Time of Service: 09:21 Discharge Plan Disposition Patient Disposition: Home Condition: Good Discharge Details Reason For Visit: L Knee Arthroscopy Attending Provider: Frank Sheikh Primary Care Provider: Rena Santoyo Home Meds and New Rx's Prescriptions: New hydrocodone-acetaminophen 5-325 mg tablet 1 tab PO Q6H PRN (Reason: pain) Qty: 6 0RF acetaminophen 500 mg tablet 1,000 mg PO TID Qty: 90 0RF ibuprofen 600 mg tablet 600 mg PO TID PRN (Reason: pain) Qty: 90 0RF Discharge Instructions Stand Alone Forms: Kori Knee Arthroscopy Equipment/Supplies: Partial Weight Bearing Crutches Activity:: Activity as Tolerated Remove Dressings/Wound Care:: 72 hours Shower/Bathe:: 72 hours Diet:: As Tolerated Discharge Orders Discharge Orders: Discharge Order (Routine); Ordered 09/13/23 Ordered By: Barry Tony
[2023-09-13 10:00] VITALS: BP 134/94; PULSE 78; RESP 16; TEMP 36.2; O2SAT 97
[2023-09-13] MEDS: Lactated Ringers 1,000 ML 80 ML IV (10:20)
[2023-09-13] MEDS: Acetaminophen 500 MG TAB 1000 MG PO (10:33)
[2023-09-13] MEDS: Celecoxib 200 MG CAP 400 MG PO (10:34)
--- NOTE | 2023-09-13 11:11 | W.ANESPRE ---
General Info Date of Service Date Performed: 09/13/23 Height: 5 ft 11 in Weight: 98.43 kg Body Mass Index (BMI): 30.2 Surgical Procedure: Operation Date: 09/13/23 12:10 Proposed Procedure Side Surgeon p Knee Arthroscopy, Partial Medial Meniscectomy Left Frank Sheikh MD Meds Allergies and Home Medications Allergies Allergy/AdvReac Type Severity Reaction Status Date / Time topiramate (From Topamax) AdvReac Severe Other (See Verified 09/13/23 10:22 Comment) Home Medication ?Medication ?Instructions ?Recorded acetaminophen 500 mg tablet 1,000 mg (2 x 500 mg) PO TID #90 09/13/23 tabs hydrocodone 5 mg-acetaminophen 325 1 tab PO Q6H PRN pain #6 tabs 09/13/23 mg tablet ibuprofen 600 mg tablet 600 mg PO TID PRN pain #90 tabs 09/13/23 Current Visit Medications: Current Medications Generic Name Dose Route Start Last Admin Trade Name Freq PRN Reason Stop Dose Admin Acetaminophen 1,000 mg 09/13/23 06:00 09/13/23 10:33 Acetaminophen 500 Mg Tab PO 09/13/23 23:59 1,000 mg PREOP CARY Administration Acetaminophen 650 mg 09/13/23 09:21 Acetaminophen 325 Mg Tab PO 10/13/23 09:20 Q4H PRN PRN Hydrocodone Bitart/Acetaminophen 0 tab 09/13/23 09:21 Hydrocodone 5/Acetaminophen 325 Tab PO 10/13/23 09:20 Q3H PRN PRN Pain Celecoxib 400 mg 09/13/23 06:00 09/13/23 10:34 Celecoxib 200 Mg Cap PO 09/13/23 23:59 400 mg PREOP CARY Administration Ringer's Solution 1,000 mls @ 80 mls/hr 09/13/23 06:00 09/13/23 10:20 IV 09/13/23 23:59 80 mls/hr INFUSION CARY Administration Cefazolin Sodium/Dextrose 2 gm in 50 mls @ 100 mls/hr 09/13/23 06:00 Ancef Duplex IVPB 09/13/23 23:59 PREOP CARY Tranexamic Acid/Sodium Chloride 1,000 mg in 100 mls @ 600 mls/hr 09/13/23 06:00 IVPB 09/13/23 23:59 PREOP CARY IV Miscellaneous Supplies 1 each 09/13/23 06:00 Iv Access IV 09/13/23 23:59 DIRECTED CARY Sodium Chloride 0 ml 09/13/23 06:00 Normal Saline Flush 10 Ml Syr IV 09/13/23 23:59 PRN PRN Sodium Chloride 0 ml 09/13/23 06:00 Normal Saline 10 Ml Vial IJ 09/13/23 23:59 DIRECTED PRN Sterile Water 0 ml 09/13/23 06:00 Water,Injection,Sterile 10 Ml Vial IJ 09/13/23 23:59 DIRECTED PRN PFSH Active Problems Active Problems: Problem Status Onset Code Acute medial meniscus tear of left knee Acute S83.242A Screen for colon cancer Acute Z12.11 Hypertension Chronic I10 Anxiety Chronic F41.9 Medical History Medical History Hypertriglyceridemia Knee pain, right Disorder of tendon of right shoulder region Hyperlipidemia Degeneration of intervertebral disc of lumbar region Nevus, atypical Left upper arm pain Migraine headache Surgical History Surgical History History of colonoscopy (~08/2022) History of knee replacement Tobacco Smoking/Tobacco Use Status: Never Alcohol Alcohol Intake: current Alcohol intake frequency: holidays/special occasions only Alcohol type: beer Substance Use Substance use: Never Substance use type: does not use Vital Signs and Lab Results Vital Signs Most Recent Vital Signs in EMR: Most Recent Vital Signs Temp Pulse Resp BP Pulse Ox 36.2 C L 78 16 134/94 H 97 09/13/23 10:00 09/13/23 10:00 09/13/23 10:00 09/13/23 10:00 09/13/23 10:00 Lab Results Blood Type / Crossmatch: No Data to Display Complete Blood Count: No Data to Display Complete Metabolic Panel: No Data to Display Liver Function Panel: No Data to Display Coagulation Panel: No Data to Display Cardiac Panel: No Data to Display Arterial Blood Gas: No Data to Display Venous Blood Gas: No Data to Display Pancreas Panel: No Data to Display Thyroid Panel: No Data to Display Infectious Disease: No Data to Display Blood Cultures: No Data to Display Toxicology Panel: No Data to Display Imaging and Studies Imaging and Studies Study information below may be from another EMR and interpreted by another provider. Please see original notes in EMR for more complete details. EKG Summary: 12/04: sinus. Anesthesia Assessment and Plan Anesthesia History Personal History: No History of Anesthesia Complications Family History: No Family History of Anesthesia Complications Exercise Tolerance Exercise Tolerance: Metabolic Equivalents>4 Cardiac & Pulmonary Exam Cardiac Exam: Normal S1/S2 Heart Sounds Pulmonary Exam: Clear Bilateral Breath Sounds Implantable Cardiac Device Does patient have a Pacemaker or an ICD?: No Airway Exam Known Difficult Airway: No Mallampati Class: 1 Mouth Opening: Normal (> 3cm) Thyromental Distance: Greater than 3 cm Neck Range of Motion: Full ROM Neck Circumference: Normal Teeth Condition: Normal Dentition ASA Classification ASA Score: ASA 2 Emergency Case?: No NPO Status NPO Status: NPO Clears >2 hours, Solids >8 hours Anesthesia Plan Resuscitation Status: Full Code Anesthesia Technique: Spinal Anesthesia Airway Planned: Natural Airway Monitors Used: Standard Monitors Preoperative Comments:: 53 yo male for knee scope. Sig PMHx: migraine, never smoker, occ EtOh. denies major. plan spinal, no sedation.
[2023-09-13 11:39] VITALS: BMI 30.2
[2023-09-13] MEDS: ceFAZolin 2 GM/50 ML BAG IVPB (12:01)
[2023-09-13] MEDS: TRANEXAMIC ACID/SOD. CHL. 1,000 MG/100 ML BAG 600 MG IVPB (12:09)
[2023-09-13] MEDS: EPINEPHrine 10 MG/10 ML ML (12:20)
[2023-09-13] MEDS: Bupivacaine 0.5% Pres-Free 30 ML VIAL (12:40)
--- NOTE | 2023-09-13 12:52 | W.PM.OP ---
Date of service: 09/13/23 Time of Service: 12:15 Operative Note Operative Note DATE OF PROCEDURE: 09/13/23 PRE-OP DIAGNOSIS: Left Knee Medial Meniscus Tear POST-OP DIAGNOSIS: same PROCEDURE: Arthroscopic partial medial meniscectomy?left knee SURGEON: Frank Sheikh ANESTHESIA TYPE: Spinal Refer to Anesthesia Record ESTIMATED BLOOD LOSS: 0 PATHOLOGY: none sent COMPLICATIONS: None Patient was transported to: PACU Patient's condition: stable Indications: I have seen Frantz in clinic for symptoms of a meniscus tear. This was confirmed based on MRI and exam findings. Nonoperative measures were exhausted but disability and pain persisted. I discussed knee arthroscopy with meniscal intervention with the patient. I reviewed the risks of the procedure to include, but not limited to, bleeding, infection, pain, stiffness, damage to nerves or vessels, recurrence, blood clot. Despite these risks, the patient elected to proceed. Findings: A diagnostic arthroscopy was performed with the following findings: Suprapatellar Pouch: No significant inflammation, No loose bodies Medial Compartment: Complex medial meniscal tear, Intact meniscal root, grade II chondromalacia of the tibia, No loose bodies Notch: ACL and PCL were intact with some partial split of the ACL Lateral Compartment: No meniscal tear, Intact meniscal root, No significant chondromalacia or signs of arthritis, No loose bodies Patellofemoral Compartment: Grade II chondromalacia of the trochlea, No apparent patellar maltracking Procedure Description: Frantz was greeted in the preoperative holding area where the correct side was identified and marked. The consent was reviewed with the patient and signed. The history and physical was updated. All questions were answered. The was taken back to the operating room. A spinal anesthetic was administered. Then, the patient was placed into the supine position on the operating room table. All bony prominences were well padded. Prophylactic antibiotics in the form of Cefazolin were administered. The left leg was then prepped with Chloraprep and draped in a standard fashion with stockinette and extremity drape. A timeout to confirm correct identity, side and site, procedure, allergies, anesthesia, and medical concerns was performed. The leg was placed into a pneumatic leg mcnally, [id number]. A standard lateral portal was made at the lateral border of the patella tendon in line with the inferior pole of the patella, soft spot. The skin and deep tissue was incised sharply and the blunt trochar was inserted atraumatically. A diagnostic arthroscopy was performed and the findings are listed above. The suprapatellar pouch had no significant inflammatory change. The patellofemoral articulation showed some trochlear cartilage wear with good tracking. The lateral gutter had no loose bodies and the medial gutter had no loose bodies. The knee was brought into some valgus stress in extension to open the medial compartment. A medial portal was made, localized by a spinal needle. The portal was created with an #11 blade through skin and capsule under direct visualization avoiding any meniscal injury. A probe was then inserted into the medial compartment. The medial compartment was fully inspected. The chondral surface of the tibia showed grade II chondromalacia, centrally, and the surface of the femur showed no significant chondromalacia. The medial meniscus had a complex tear with a radial component at the posterior horn and horizontal tearing extending through the posterior body with significant inflammatory changes seen around the capsule. After evaluation, the meniscus was debrided down to a stable base using a series of biters and arthroscopic eduardo. It was probed afterwards to confirm that the tear had been removed and the meniscus was stable. The notch was then inspected which showed an intact ACL and an intact PCL although the ACL had some separation of some of its fibers that was still intact. The leg was then brought into a figure of 4 position. The lateral compartment was fully inspected with the arthroscope and a probe. The chondral surface of the lateral femur showed no significant chondromalacia. The chondral surface of the lateral tibia showed no significant chondromalacia. The lateral meniscus had no meniscal tear. The arthroscope was brought back into the suprapatellar pouch and the leg was in full extension. The knee was thoroughly irrigated with the arthroscopic fluid on high flow and pressure. Inflow was stopped and excess fluid was removed. The wounds were closed with 4-0 Nylon. The portal sites were injected with 0.5% bupivacaine. They were dressed with Xeroform, 4x4 gauze, ABD pad, Kerlix and an CONNIE wrap. A cryo-cuff was applied. The patient tolerated the procedure well and was returned to the Same Day Surgery area in a stable condition suffering no known complication.
[2023-09-13 12:54] VITALS: BP 140/95; PULSE 67; RESP 16; TEMP 36.2; O2SAT 98
--- NOTE | 2023-09-13 13:13 | W.ANESPOSTOP ---
Postoperative Evaluation Date, Time and Location Date Performed: 09/13/23 Time Performed: 13:13 Patient Location: Day Surgery Unit Vital Signs Most Recent Imported Vital Signs: Most Recent Vital Signs Temp Pulse Resp BP Pulse Ox 36.2 C L 67 16 140/95 H 98 09/13/23 12:54 09/13/23 12:54 09/13/23 12:54 09/13/23 12:54 09/13/23 12:54 Pain Score Most Recent Pain Score: Most Recent Pain Score Pain Level 0 09/13/23 12:54 Assessment Mental Status: Awake (Alert & Oriented to Patient Baseline) Airway and Respiratory Function: Patent airway with normal (patient baseline) respiratory exam Cardiovascular Function: Hemodynamically Stable Hydration Status: Adequately Hydrated Nausea & Vomiting: No Nausea or Vomiting Pain: Pain is tolerable per patient (spinal waning. ) Peripheral Nerve Block: Patient did not receive a nerve block
[2023-09-13 13:30] VITALS: BP 137/94; PULSE 65; RESP 16; TEMP 36.1; O2SAT 97
== END 2023-09-13 14:25 | disposition home or self-care (01) ==
PROVIDERS: PCP Nurse Practitioner Family; Visit Provider Student in an Organized Health Care Education/Training Program
PROC: (CPT 29870; principal; 2023-09-13 12:00)
DX: M23.232 Derangement of other medial meniscus due to old tear or injury, left knee (principal); I10 Essential (primary) hypertension; F41.9 Anxiety disorder, unspecified; E78.1 Pure hyperglyceridemia
CPT/HCPCS: 29881; J0665; J0690; J1100; J1885; J2401; J2405

== ENCOUNTER 2023-09-28 13:48 | Emergency (ER) | payer MEDICAID, SELFPAY ==
[2023-09-28 13:51] VITALS: BP 169/106; PULSE 67; RESP 12; TEMP 36.6; O2SAT 98
[2023-09-28] MEDS: diphenhydrAMINE 50 MG/ML VIAL 25 MG IVP (15:22)
[2023-09-28] MEDS: Prochlorperazine 10 MG/2 ML VIAL IVP (15:23)
[2023-09-28] MEDS: Ketorolac 30 MG/ML VIAL IVP (15:23)
[2023-09-28] MEDS: Lactated Ringers 1,000 ML 1000 ML IV (15:24)
--- NOTE | 2023-09-28 16:00 | W.ED.GENAD ---
Discharge Plan Disposition Patient Disposition: Home Condition: Stable Discharge Details Clinical Impression: Headache Primary Care Provider: Rena Santoyo ED Provider: Rashel Linder Home Meds and New Rx's Prescriptions: Continued acetaminophen 500 mg tablet 1,000 mg PO TID Qty: 90 0RF ibuprofen 600 mg tablet 600 mg PO TID PRN (Reason: pain) Qty: 90 0RF Discharge Instructions Instructions: Headache, Adult ED Additional Instructions: Please follow-up with your neurologist. Please contact your primary care physician to arrange follow-up. Return to the ER immediately for any worsening or new concerning symptoms. HPI General Mode of arrival: ambulatory. Date/Time Provider Initiated Documentation: 09/28/23 14:27. Limitations to Documentation: no limitations. Information obtained by: patient. HPI Narrative: 53-year-old male with history of migraine headaches, here with chief complaint of headache. Patient notes headache started 3 days ago and has persisted. Headache gradual in onset and progressive. Headache is not the worst headache of his life. He has had similar migraine in the past that required hospital treatment. He notes he has been taking ibuprofen, which typically helps his headache, and has not resolved his current exacerbation. He denies associated numbness, tingling, weakness, visual change. Related Data Home Medications ?Medication ?Instructions ?Recorded ?Confirmed acetaminophen 500 mg tablet 1,000 mg (2 x 500 mg) PO TID #90 09/13/23 09/28/23 tabs ibuprofen 600 mg tablet 600 mg PO TID PRN pain #90 tabs 09/13/23 09/28/23 Previous Rx's ?Medication ?Instructions ?Recorded acetaminophen 500 mg tablet 1,000 mg (2 x 500 mg) PO TID #90 09/13/23 tabs ibuprofen 600 mg tablet 600 mg PO TID PRN pain #90 tabs 09/13/23 Allergies Allergy/AdvReac Type Severity Reaction Status Date / Time topiramate (From Topamax) AdvReac Severe Other (See Verified 09/28/23 13:54 Comment) General Stated Complaint: Headache EVIE: 3 Review of Systems Constitutional Constitutional: Denies fever(s) Eyes Eyes: Denies loss of vision ENT Ears, Nose, Mouth, and Throat: Denies dizziness and Denies disequilibrium Neurologic Neurologic: Denies dizziness, Denies loss of vision, Denies sensory deficit, Denies paresthesias and Denies disequilibrium Exam Const General: cooperative and no acute distress [facility] Head: normocephalic and atraumatic Eyes EOM: EOM intact bilaterally Neck Neck: full ROM, trachea midline and supple Resp Auscultation: clear to auscultation bilaterally, no rales, no rhonchi and no wheezes Cardio Rate: regular rate and not tachycardic Rhythm: regular rhythm GI Palpation: soft, not firm, no guarding, no masses, not rigid and nontender Skin General skin exam: no rashes or lesions noted Neuro General: patient alert, patient awake, patient oriented x3 and tone normal Cranial Nerves: CN's II-XI intact bilaterally Cognition: normal cognition Speech: speech normal Gait: normal gait Motor: strength 5/5 throughout Sensory Exam: no sensory deficits noted Psych Appearance: grossly normal Mental Status: mental status grossly normal Course Vital Signs Vital signs: Vital Signs Temperature 36.6 C 09/28/23 13:51 Pulse 67 09/28/23 13:51 Respiratory Rate 12 09/28/23 13:51 Blood Pressure 169/106 H 09/28/23 13:51 Pulse Oximetry 98 09/28/23 13:51 Temperature 36.6 C 09/28/23 13:51 Temperature Source Skin 09/28/23 13:51 Pulse 67 09/28/23 13:51 Respiratory Rate 12 09/28/23 13:51 Respiratory Effort Normal, Non-Labored 09/28/23 14:32 Blood Pressure 169/106 H 09/28/23 13:51 Blood Pressure Position Sitting 09/28/23 13:51 Pulse Oximetry 98 09/28/23 13:51 Oxygen Delivery Method Room Air 09/28/23 13:51 Oxygen Flow Rate 0 09/28/23 13:51 Pain Level 7 09/28/23 13:51 Medical Decision Making 1545 -- 53 year-old male with history of migraine headaches, here with migraine over the past 3 days, refractory to ibuprofen. Patient is neurologically intact. Hemodynamically stable. Afebrile. Full range of motion of his neck. He has no focal neurologic deficits. Patient has had prior similar headache in the past. Suspect acute migraine. Plan to treat with Compazine IV, Benadryl IV, Toradol IV, IV fluid. Plan to reassess. 1634 --patient reassessed and headache completely resolved. Patient feeling much better. Requesting discharge. Plan for discharge with outpatient follow-up with neurology. Disposition decision was made weighing the risks and benefits of hospitalization versus outpatient treatment, the risk for further decompensation, and the patient's wishes. The patient was stable and requested discharge. Prior to discharge, my usual and customary return precautions were reviewed with the patient - this included follow-up instructions and reason to return to the emergency department if condition worsens, does not improve as expected, or other new concerns arise. Quality:SDOH Health Related Social Needs: No Data to Display PFSH All Active Problems (Updated 09/28/23 @ 16:38 by Rashel Linder MD) Headache (Acute) Status post arthroscopy of left knee (Acute 09/13/23) Screen for colon cancer (Acute) Hypertension (Chronic) Anxiety (Chronic) Medical History Hypertriglyceridemia Knee pain, right Disorder of tendon of right shoulder region Hyperlipidemia Degeneration of intervertebral disc of lumbar region Nevus, atypical Left upper arm pain Migraine headache Surgical History History of colonoscopy (~08/2022) History of knee replacement Social History Smoking/Tobacco Use Status: Never Smoking risk assessment performed?: Yes Alcohol Intake: current Alcohol Intake frequency: holidays/special occasions only Alcohol type: beer Drug use: Never Substance use type: does not use Housing: house Do you feel safe at home: Yes Do you feel safe in your relationship?: Yes
--- NOTE | 2023-09-28 16:52 | NUR.NOTE ---
Nursing Note: PO challenge administered as per physician request. Pt able to eat and drink w/o complication. Pt states, I feel fine.
[2023-09-28 16:53] VITALS: BP 162/106; PULSE 69; RESP 18; O2SAT 97
== END 2023-09-28 16:54 | disposition home or self-care (01) ==
PROVIDERS: Emergency Provider Student in an Organized Health Care Education/Training Program; PCP Nurse Practitioner Family
DX: R51.9 Headache, unspecified (principal)
CPT/HCPCS: 36415; 96361; 96374; 96375; 99284; J0780; J1200; J1885

== ENCOUNTER 2024-05-31 17:40 | Outpatient (REF) | payer MEDICAID, SELFPAY ==
--- NOTE | 2024-05-31 14:15 | SKI_PTH ---
PATIENT: Kaushal Lennon LOC: [facility] U#:[id number] AGE/SX: 53/M ROOM: RE05/31/[address]: Ayad Jaeger DO : 1970 BED: DIS: 05/31/2024 SPEC #: [id number] RECD: 05/31/24 18:13 STATUS: KAMILA REQ #: [id number] ANSLEY: 05/31/24 14:[address]: Ayad Jaeger DEPT: Surgical Specimen RECD BY: La Fuentes ENTERED: 05/31/24 18:13 SP TYPE: SKI OTHR DR: Rena Santoyo Tissues: 1 - SKIN BIOPSY(SHAVE/PUNCH) Procedures: SKIN LEVEL 4 Comments: [id number]
== END 2024-05-31 17:41 | disposition home or self-care (01) ==
LOC: LBN 17:40
PROVIDERS: PCP Nurse Practitioner Family; Visit Provider Otolaryngology Otolaryngology/Facial Plastic Surgery
DX: L98.9 Disorder of the skin and subcutaneous tissue, unspecified (principal); L82.1 Other seborrheic keratosis
CPT/HCPCS: 88305

== ENCOUNTER 2024-06-08 05:08 | Emergency (ER) | payer MEDICAID, SELFPAY ==
[2024-06-08 05:11] VITALS: BP 157/110; PULSE 67; RESP 18; TEMP 35.7; O2SAT 97
[2024-06-08 05:15] VITALS: BP 157/110; PULSE 67; RESP 18; TEMP 35.7; O2SAT 97
--- NOTE | 2024-06-08 05:39 | ED.GENADUL_ITS ---
Discharge Plan Disposition Patient Disposition: Home Condition: Good Discharge Details Clinical Impression: Acute sore throat Primary Care Provider: Rena Santoyo ED Provider: Mirna Bellamy Home Meds and New Rx's Prescriptions: Continued acetaminophen 500 mg tablet 1,000 mg PO TID Qty: 90 0RF ibuprofen 600 mg tablet 600 mg PO TID PRN (Reason: pain) Qty: 90 0RF Discharge Instructions Instructions: Sore Throat, Adult ED Additional Instructions: Covid, flu, and RSV were all negative. Strep negative. Talbot negative. Take tylenol and ibuprofen over the counter for your symptoms. Call your primary care doctor on Monday to schedule an appointment to followup on your visit here. At that visit mention your blood pressure which is high here today. Return to the emergency department for new or worsening symptoms. HPI General Mode of arrival: ambulatory . Date/Time Provider Initiated Documentation: 06/08/24 05:09 . Limitations to Documentation: no limitations . Information obtained by: patient . HPI Narrative: 53yo M with hx HTN presenting for flu-like symptoms for 2.5 weeks. Has had subjective fevers, diffuse body aches, and sore throat. Also feels generally weak all over. No cough or difficulty breathing. No difficultly swallowing. No neck pain. No sick contacts. Otherwise in his usual state of health with no measured fevers, rash, nausea, vomiting, abdominal pain, or other concerns. Related Data Home Medications ?Medication ?Instructions ?Recorded ?Confirmed acetaminophen 500 mg tablet 1,000 mg (2 x 500 mg) PO TID #90 09/13/23 06/08/24 tabs ibuprofen 600 mg tablet 600 mg PO TID PRN pain #90 tabs 09/13/23 06/08/24 Previous Rx's ?Medication ?Instructions ?Recorded acetaminophen 500 mg tablet 1,000 mg (2 x 500 mg) PO TID #90 09/13/23 tabs ibuprofen 600 mg tablet 600 mg PO TID PRN pain #90 tabs 09/13/23 Allergies Allergy/AdvReac Type Severity Reaction Status Date / Time topiramate (From Topamax) AdvReac Severe Other (See Verified 06/08/24 05:18 Comment) General Stated Complaint: GenMedical EVIE: 3 Review of Systems Narrative: see HPI Exam Narrative Exam Narrative: General: Alert, well appearing, well nourished, in no acute distress. Head: Normocephalic, atraumatic Neck: Trachea midline, ?Neck supple. Tender right cervical lymphadenopathy. ENT: ?MMM.? No oropharygeal lesions or exudate. Cardiac: ?Regular. Well perfused. No cyanosis. Resp: No respiratory distress. CTAB. Speaking in full sentences. Abd: ?Non-distended, Extremities: ?No deformities.? No peripheral edema. Neurologic: GCS 15. ? Moves all extremities freely against gravity Course Vital Signs Vital signs: Vital Signs Temperature 35.7 C L 06/08/24 05:11 Pulse 67 06/08/24 05:11 Respiratory Rate 18 06/08/24 05:11 Blood Pressure 157/110 H 06/08/24 05:11 Pulse Oximetry 97 06/08/24 05:11 Temperature 35.7 C L 06/08/24 05:15 Temperature Source Temporal Artery Scan 06/08/24 05:15 Pulse 67 06/08/24 05:15 Respiratory Rate 18 06/08/24 05:15 Respiratory Effort Normal, Non-Labored 06/08/24 05:15 Respiratory Depth Normal 06/08/24 05:15 Respiratory Pattern Normal 06/08/24 05:15 Blood Pressure 157/110 H 06/08/24 05:15 Blood Pressure Position Sitting 06/08/24 05:15 Pulse Oximetry 97 06/08/24 05:15 Oxygen Delivery Method Room Air 06/08/24 05:15 Oxygen Flow Rate 0 06/08/24 05:11 Pain Level 4 06/08/24 05:15 Medical Decision Making 53yo M with hx HTN presenting for flu-like symptoms for 2.5 weeks. Has had subjective fevers, diffuse body aches, and sore throat. Hypertensive on arrival, vital signs otherwise reassuring. Tender right anterior cervical lymphadenopathy on exam. Likely viral illness. History and exam not concerning for sepsis, meningitis, deep space neck infection, or other acute/life threatening pathology. Swabbed for covd/flu/strep in triage; all negative. Patient requested mono test which was done and negative. Advised symptomatic treatment at home, PCP followup for BP. Discharged home; discharge instructions and return precautions were reviewed with patient who verbalized understanding. All questions were answered and he is in full agremeent with the plan. Lab Data Lab results reviewed: Yes I reviewed the patient's lab results. Labs: 06/08/24 05:14 Tonsil - Not Specified Group A Streptococcus Culture - Pending Laboratory Tests Range/Units 06/08/24 06/08/24 05:14 05:46 COVID-19 Source Nasopharynx SARS-CoV-2 (PCR) (Negative) Negative Monoscreen (Negative) Negative Influenza Type A (PCR) (Negative) Negative Influenza Type B (PCR) (Negative) Negative RSV (PCR) (Negative) Negative Quality:SDOH Health Related Social Needs: No Data to Display PFSH All Active Problems (Updated 06/08/24 @ 07:25 by Mirna Bellamy MD) Acute sore throat (Acute) Skin lesion (Acute) Screening for malignant neoplasm of skin (Acute) Allergy (Acute) Status post arthroscopy of left knee (Acute 09/13/23) Screen for colon cancer (Acute) Hypertension (Chronic) Anxiety (Chronic) Medical History (Updated 06/08/24 @ 07:25 by Mirna Bellamy MD) Left knee pain Onychomycosis due to dermatophyte Hypertriglyceridemia Knee pain, right Disorder of tendon of right shoulder region Hyperlipidemia Degeneration of intervertebral disc of lumbar region Nevus, atypical Left upper arm pain Migraine headache Surgical History History of colonoscopy (~08/2022) History of knee replacement Social History Smoking/Tobacco Use Status: Never Smoking risk assessment performed?: Yes Alcohol Intake: current Alcohol Intake frequency: holidays/special occasions only Alcohol type: beer Drug use: Never Substance use type: does not use Housing: house Do you feel safe at home: Yes Do you feel safe in your relationship?: Yes
[2024-06-08 05:57] LABS: Mono Screening Negative (Negative)
[2024-06-08 07:14] LABS: COVID-19 PCR Negative (Negative); Influenza A PCR Negative (Negative); Influenza B PCR Negative (Negative); RSV PCR Negative (Negative)
[2024-06-08 07:16] LABS: Source Nasopharynx
[2024-06-08 07:42] VITALS: BP 131/99; PULSE 67; RESP 18; O2SAT 98
== END 2024-06-08 07:44 | disposition home or self-care (01) ==
PROVIDERS: Emergency Provider Student in an Organized Health Care Education/Training Program; PCP Nurse Practitioner Family
DX: J02.9 Acute pharyngitis, unspecified (principal); I10 Essential (primary) hypertension
CPT/HCPCS: 99283 ×2; 87880; 36415; 87637; 86308; 87081

== ENCOUNTER 2024-11-27 03:11 | Emergency (ER) | payer MEDICAID, SELFPAY ==
[2024-11-27 03:16] VITALS: BP 147/100; PULSE 74; RESP 18; TEMP 36.5; O2SAT 98
[2024-11-27 03:20] VITALS: PULSE 70; RESP 18; O2SAT 97
[2024-11-27 03:51] LABS: Glucose Negative (Negative)
--- NOTE | 2024-11-27 04:00 | DI.CT_ITS ---
Exam(s) CT ABDOMEN PELVIS W EXAM: CT ABDOMEN PELVIS W CLINICAL HISTORY: RLQ pain, GI bleeding TECHNIQUE: Imaging Protocol: Axial computed tomography images with coronal and sagittal reformatted images were created and reviewed. CONTRAST MATERIAL: Intravenous: Omnipaque 350 Contrast volume:100 mL Oral: No COMPARISON: No exams were available for comparison FINDINGS: ABDOMEN: Lung Bases: No acute abnormality. Liver: Normal density. No measurable mass. Portal, Superior Mesenteric, and Splenic Veins: Unremarkable. Gallbladder and Biliary Tract: No radiodense calculus or dilation. Pancreas: Normal density, no abnormal calcifications or inflammatory process. Spleen: Normal. Adrenals: No masses seen. Kidneys: Normal size, contour and axis. No radiodense stones or obstructive uropathy. No masses seen. Abdominal Aorta: Abdominal portion non-dilated. Mild atherosclerotic calcification is present. Bowel: There are diverticula seen in the colon, but no evidence of acute diverticulitis. There is no evidence of bowel wall thickening or obstruction. The appendix is visualized in the right lower quadrant. It measures 8 mm in diameter. There is air seen within the appendix. There is a no appendicoliths or Brittany appendiceal inflammatory changes. There is stool seen throughout the colon which may represent constipation. The stomach is incompletely distended limiting evaluation. Peritoneal Cavity: No ascites, collection or mesenteric inflammatory response. No free air. Lymph Nodes: Within normal limits. Bones: Within normal limits for the patient's age. Soft Tissues: There is a small fat containing umbilical hernia. There is a small fat containing left inguinal hernia. PELVIS: Bladder: Symmetric distention, no gross wall thickening. Reproductive Organs: Unremarkable as visualized. Lymph Nodes: Within normal limits. Bones: Within normal limits for the patient's age. IMPRESSION: 1. No evidence to suggest appendicitis at this time. Follow-up as clinically appropriate. 2. Moderate amount of stool throughout the colon suggesting constipation. 3. No acute abdominal or pelvic process. 4. The preliminary [facility] report was reviewed. RADIATION DOSE DELIVERED: 598.06mGy.cm Total DLP DATA REPOSITORY: All CT scans at this facility are submitted to the National Radiology Data Registry (NRDR) Dose Index Registry (DIR) with the [employer] (A[employer]). RADIATION OPTIMIZATION: All CT scans at this facility use at least one of these dose optimization techniques: automated exposure control; mA and/or kV adjustment per patient size (includes targeted exams where dose is matched to clinical indication); or iterative reconstruction.
[2024-11-27 04:04] LABS: Abs Immature Grans 0.01 10^3/uL (0.0-0.06); HCT 41.1 % (40.0-50.0); HGB 14.0 g/dL (13.5-17.5); Immature Grans % 0.2 %; MCH 28.8 pg (27.0-33.0); MCHC 34.1 % (32.0-36.0); MCV 85 fL (80-95); MPV 9.1 fL (8.0-11.0); Platelet Count 215 10^3/uL (130-400); RBC 4.86 10^6/uL (4.36-5.78); RDW 12.6 % (11.8-14.1); RDW-SD 38.1 fL; WBC 5.52 10^3/uL (4.4-10.8)
--- NOTE | 2024-11-27 04:16 | ED.GENADUL_ITS ---
Discharge Plan Disposition Patient Disposition: Home Condition: Good Discharge Details Clinical Impression: GI bleed Primary Care Provider: Rena Santoyo ED Provider: Jeffrey Mayfield Home Meds and New Rx's Prescriptions: New sucralfate [Carafate] 1 gram tablet 1 g PO BID Qty: 60 0RF pantoprazole [Protonix] 40 mg tablet,delayed release (DR/EC) 40 mg PO DAILY Qty: 30 0RF No Action acetaminophen 500 mg tablet 1,000 mg PO TID Qty: 90 0RF ibuprofen 600 mg tablet 600 mg PO TID PRN (Reason: pain) Qty: 90 0RF Discharge Instructions Instructions: GI bleed Additional Instructions: At this time we do not see any evidence of active bleed or significant abnormality on your CT scan. There is concern that your bleeding may have been from a gastric ulcer, but it could also been from irritation in your lower intestines. Please take the Protonix and Carafate as prescribed. Please avoid any fatty or greasy foods, tomato-based products, or spicy foods. Drink plenty fluids and stay well-hydrated. Please continue to have a balanced diet with fiber. It is expected that the bleeding will improve/resolve, however if you notice that it persists please return for reassessment. We have placed a referral with our surgeons for outpatient follow-up for further discussion of potential repeat colonoscopy. They will contact you for an appointment time. If you notice any worsening of your symptoms, or any new symptoms such as vomiting, diarrhea, fever, chills, shortness of breath, chest pain, numbness, weakness, or fainting , please return immediately to the emergency department for reevaluation. Please follow up with your primary care provider as soon as possible for reassessment and reevaluation. As always, it was a pleasure participating in your medical care today. Referrals: Rena Santoyo [Primary Care Provider, Medicine] HPI General Date/Time Provider Initiated Documentation: 11/27/24 03:13 . HPI Narrative: This is a 54-year-old male with no significant past medical history except for hypertension, history of nonformally diagnosed irritable bowel syndrome, who presents today for abdominal pain and blood in his stool. Patient states that for the last 3 days he has had a mild sharp sensation in the right upper quadrant, in addition to this he has had softer than normal stools/diarrhea for the past couple of days. This morning he woke up with slightly more abdominal discomfort, and when he had a bowel movement he noted it to be a fair to moderate amount of bright red blood per rectum. Pain improved after this. He had no vomiting. He denies any other complaints at this time. He denies history of previous GI bleeds. No personal history of gastric cancer, ulcerative colitis, or Crohn's. Related Data Home Medications ?Medication ?Instructions ?Recorded ?Confirmed acetaminophen 500 mg tablet 1,000 mg (2 x 500 mg) PO T ID #90 09/13/23 11/27/24 tabs ibuprofen 600 mg tablet 600 mg PO TID PRN pain #90 t abs 09/13/23 11/27/24 pantoprazole 40 mg tablet,delayed 40 mg PO DAILY #30 t abs 11/27/24 release (Protonix) sucralfate 1 gram tablet (Carafate) 1 g PO BID #60 tab s 11/27/24 Previous Rx's ?Medication ?Instructions ?Recorded acetaminophen 500 mg tablet 1,000 mg (2 x 500 mg) PO T ID #90 09/13/23 tabs ibuprofen 600 mg tablet 600 mg PO TID PRN pain #90 t abs 09/13/23 pantoprazole 40 mg tablet,delayed 40 mg PO DAILY #30 t abs 11/27/24 release (Protonix) sucralfate 1 gram tablet (Carafate) 1 g PO BID #60 tab s 11/27/24 Allergies Allergy/AdvReac Type Severity Reaction Status Date / Time topiramate (From Topamax) AdvReac Severe Other (See Verified 11/27/24 03:19 Comment) General Stated Complaint: Abd Prob EVIE: 3 Exam Narrative Exam Narrative: 1.Const: Well-nourished, Well-developed, appearing stated age 2.Eyes: PERRL, no conjunctival injection, and symmetrical lids. 3.ENT: Atraumatic external nose and ears. Moist MM. Neck: Symmetric, trachea midline, No thyromegaly. 4.CVS: +S1/S2, Peripheral pulses 2+ and equal in all extremities. Brisk capillary refill in all extremities. 5.RESP: Unlabored respiratory effort. Clear to auscultation bilaterally. No wheezes rales or rhonchi 6.GI: Soft, nondistended. No guarding or rebound. Negative Guillory sign. Mild achiness and pain at McBurney's point, mild left lower quadrant tenderness. Negative Rovsing sign. 7.MSK: Normocephalic/Atraumatic, Extremities w/o deformity or ttp No cyanosis or clubbing, Normal movement of all extremities 8.Skin: Warm, Dry. No rashes or lesions. 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 Sensation grossly intact, no focal neurologic deficits. 10.Psych: (AAO) x3. Appropriate mood and affect Course Vital Signs Vital signs: Vital Signs Temperature 36.5 C 11/27/24 03:16 Pulse 74 11/27/24 03:16 Respiratory Rate 18 11/27/24 03:16 Blood Pressure 147/100 H 11/27/24 03:16 Pulse Oximetry 98 11/27/24 03:16 Temperature 36.5 C 11/27/24 03:16 Temperature Source Oral 11/27/24 03:16 Pulse 70 11/27/24 03:20 Respiratory Rate 18 11/27/24 03:20 Blood Pressure 147/100 H 11/27/24 03:16 Pulse Oximetry 97 11/27/24 03:20 Oxygen Delivery Method Room Air 11/27/24 03:16 Oxygen Flow Rate 0 11/27/24 03:16 Pain Level 3 11/27/24 03:16 Lab/Test Results Lab/Test Results: Laboratory Tests Range/Units 11/27/24 11/27/24 03:42 03:54 WBC (4.4-10.8) 10^3/uL 5.52 RBC (4.36-5.78) 10^6/uL 4.86 Hgb (13.5-17.5) g/dL 14.0 Hct (40.0-50.0) % 41.1 MCV (80-95) fL 85 MCH (27.0-33.0) pg 28.8 MCHC (32.0-36.0) % 34.1 RDW (11.8-14.1) % 12.6 Plt Count (130-400) 10^3/uL 215 MPV (8.0-11.0) fL 9.1 Immature Gran % % 0.2 Neutrophils % % 38.8 Lymphocytes % % 51.8 Monocytes % % 7.4 Eosinophils % % 1.1 Basophils % % 0.7 Nucleated RBC % (0.0-0.3) % 0.0 Absolute Neutrophils (1.2-6.7) 10^3/uL 2.14 Absolute Lymphocytes (1.2-3.4) 10^3/uL 2.86 Absolute Monocytes (0.1-0.8) 10^3/uL 0.41 Absolute Eosinophils (0.0-0.7) 10^3/uL 0.06 Absolute Basophils (0.0-0.2) 10^3/uL 0.04 VBG Lactate (<or=2.0) mmol/L 1.1 Urine Color (Yellow) Yellow Urine Clarity (Clear) Clear Urine pH (5-8) 5.5 Ur Specific [place] (1.005-1.025) >= 1.030 H Urine Protein (Neg-Trace) mg/dL Negative Urine Ketones (Negative) mg/dL Negative Urine Blood (Negative) Negative Urine Nitrite (Negative) Negative Urine Bilirubin (Negative) Negative Urine Urobilinogen (Up to 0.2) mg/dL 0.2 Ur Leukocyte Esterase (Negative) Negative Urine Glucose (Negative) mg/dL Negative Medical Decision Making This is a 54-year-old male with no significant past medical history except for hypertension, history of nonformally diagnosed irritable bowel syndrome, who presents today for abdominal pain and blood in his stool. Patient states that for the last 3 days he has had a mild sharp sensation in the right upper quadrant, in addition to this he has had softer than normal stools/diarrhea for the past couple of days. This morning he woke up with slightly more abdominal discomfort, and when he had a bowel movement he noted it to be a fair to moderate amount of bright red blood per rectum. Pain improved after this. He h ad no vomiting. He denies any other complaints at this time. He denies history of previous GI bleeds. No personal history of gastric cancer, ulcerative colitis, or Crohn's. Exam demonstrates well-appearing male, mild achiness in the right lower quadrant and left lower quadrant. Negative Guillory sign. Differential includes appendicitis, diverticulitis or diverticulosis. Potential colitis as well. Will get CT imaging, check blood work, monitor closely and reassess. Patient declines any medication for pain at this time. 6 AM Laboratory workup has returned, no white count bandemia or left shift, hemoglobin level stable. BUN slightly high at 24 which could represent dehydration or evidence of an upper GI bleed. Patient has had no further bleeding nausea or bowel movements here. Urinalysis negative. Patient's been typed and screened. CT imaging shows no evidence of acute process, there is some fecalization of contents in the small bowel, but no other abnormality otherwise. Patient otherwise feels well. CT scan shows no evidence of acute cholecystitis, laboratory workup shows no transaminitis or hyperbilirubinemia. Differential at this time is highest for potential upper GI source of the bleed, or potential diverticulosis which led to the bleed. Regardless symptoms have resolved and he is notably hemodynamically stable at this time. Will give prescription for Protonix and Carafate for home use, will place referral outpatient for surgical evaluation for potential repeat colonoscopy. Colonoscopy in 2022 was otherwise unremarkable. Patient otherwise stable for d ischarge. Discussed red flags for which to return. I have extensively reviewed the treatment plan and discharge instructions with the patient. I have addressed all patient concerns at this time. The patient was made aware of what symptoms to monitor for that would warrant a return to the emergency department. Discussed the plan with the patient, they demonstrate verbal understanding and agreement with our assessment and plan at this time. The documentation in this chart was dictated using [employer] dictation software. Please excuse any dictation errors. FINDINGS: Liver: Hepatomegaly. Gallbladder and biliary ducts: No radiodense gallbladder calculi seen. Pancreas: No CT evidence for acute pancreatitis. Spleen: No splenomegaly. Adrenal glands: No mass. Kidneys and ureters: No hydronephrosis or evidence for pyelonephritis. Stomach and bowel: No intestinal obstruction is evident. Fecalization of contents in small bowel loops suggests stasis. Retained fecal material is present in the colon. Colonic diverticula. Appendix: No evidence of appendicitis. Intraperitoneal space: No free air. Vasculature: No abdominal aortic aneurysm. Lymph nodes: Nonspecific mesenteric and retroperitoneal lymph nodes. Urinary bladder: No acute findings. Reproductive: Mildly prominent prostate. Bones/joints: No pertinent acute abnormality seen. Soft tissues: No pertinent acute abnormality seen. IMPRESSION: 1. No acute findings to explain reported symptoms. 2. Nonacute findings as outlined above. Thank you for allowing us to participate in the care of your patient. Dictated and Authenticated by: Donna Randhawa MD 11/27/2024 4:56 AM Eastern Time ([place] & [place]) PFSH All Active Problems (Updated 11/27/24 @ 05:45 by Jeffrey Mayfield DO) GI bleed (Chronic) Skin lesion (Acute) Screening for malignant neoplasm of skin (Acute) Allergy (Acute) Status post arthroscopy of left knee (Acute 09/13/23) Screen for colon cancer (Acute) Hypertension (Chronic) Anxiety (Chronic) Medical History (Updated 11/27/24 @ 05:45 by Jeffrey Mayfield DO) Left knee pain Onychomycosis due to dermatophyte Hypertriglyceridemia Knee pain, right Disorder of tendon of right shoulder region Hyperlipidemia Degeneration of intervertebral disc of lumbar region Nevus, atypical Left upper arm pain Migraine headache Surgical History History of colonoscopy (~08/2022) History of knee replacement Social History Smoking/Tobacco Use Status: Never Smoking risk assessment performed?: Yes Alcohol Intake: current Alcohol Intake frequency: holidays/special occasions only Alcohol type: beer Drug use: Never Substance use type: does not use Housing: house Do you feel safe at home: Yes Do you feel safe in your relationship?: Yes
[2024-11-27 04:21] LABS: INR 1.0 (0.9-1.1); PTT Activated 23.2 sec (20.6-30.2); Prothrombin Time 9.9 sec (9.1-11.1)
[2024-11-27 04:22] LABS: ALT 42 U/L (16-63); AST 18 U/L (15-37); Albumin 4.2 g/dL (3.4-5.0); Alkaline Phosphatase 56 U/L (46-116); Anion Gap 9.3 mmol/L (3-11); BUN 24 mg/dL (7-18); Bilirubin, Total 0.4 mg/dL (0.2-1.0); CO2 27.7 mmol/L (21.0-32.0); Calcium 9.0 mg/dL (8.5-10.1); Chloride 103 mmol/L (98-107); Estimated GFR 88.88 (mL/min/1.73m2); Glucose 108 mg/dL (74-106); Potassium 4.0 mmol/L (3.5-5.1); Sodium 140 mmol/L (136-145); Total Protein 7.5 g/dL (6.4-8.2)
[2024-11-27] MEDS: Normal Saline - Diluent 50 ML VIAL IJ (04:28)
[2024-11-27] MEDS: Normal Saline Flush 10 ML SYR IVP (04:28)
[2024-11-27] MEDS: Omnipaque 350 MG/ML 100 ML BTL IJ (04:28)
[2024-11-27 04:34] LABS: Lipase 47 U/L (<78)
--- NOTE | 2024-11-27 04:56 | DI.VRAD_ITS ---
PROCEDURE INFORMATION: Exam: CT Abdomen And Pelvis With Contrast Exam date and time: 11/27/2024 4:26 AM Age: 54 years old Clinical indication: Abdominal pain; Localized; Right lower quadrant (rlq); Rlq pain, blood in stool TECHNIQUE: Imaging protocol: Computed tomography of the abdomen and pelvis with contrast. Radiation optimization: All CT scans at this facility use at least one of these dose optimization techniques: automated exposure control; mA and/or kV adjustment per patient size (includes targeted exams where dose is matched to clinical indication); or iterative reconstruction. Contrast material: OMNIPAQUE 350; Contrast volume: 100 ml; Contrast route: INTRAVENOUS (IV); COMPARISON: No relevant prior studies are available for comparison. FINDINGS: Liver: Hepatomegaly. Gallbladder and biliary ducts: No radiodense gallbladder calculi seen. Pancreas: No CT evidence for acute pancreatitis. Spleen: No splenomegaly. Adrenal glands: No mass. Kidneys and ureters: No hydronephrosis or evidence for pyelonephritis. Stomach and bowel: No intestinal obstruction is evident. Fecalization of contents in small bowel loops suggests stasis. Retained fecal material is present in the colon. Colonic diverticula. Appendix: No evidence of appendicitis. Intraperitoneal space: No free air. Vasculature: No abdominal aortic aneurysm. Lymph nodes: Nonspecific mesenteric and retroperitoneal lymph nodes. Urinary bladder: No acute findings. Reproductive: Mildly prominent prostate. Bones/joints: No pertinent acute abnormality seen. Soft tissues: No pertinent acute abnormality seen. IMPRESSION: 1. No acute findings to explain reported symptoms. 2. Nonacute findings as outlined above. Dictated and Authenticated by: Donna Randhawa MD. Orderin Tran Murphy MD
== END 2024-11-27 05:53 | disposition home or self-care (01) ==
LOC: ER 05:57
PROVIDERS: Emergency Provider Student in an Organized Health Care Education/Training Program; PCP Nurse Practitioner Family
DX: K92.2 Gastrointestinal hemorrhage, unspecified (principal)
CPT/HCPCS: 99285; 99284; 80053; 83690; 86850; 86900; 86901; 74177; 81003; 83605; 85025; 85610; 85730; J3490

== ENCOUNTER 2024-12-26 11:19 | Outpatient (CLI) | payer MEDICAID, SELFPAY ==
[2024-12-26 11:28] LABS: C-Reactive Protein < 0.50 mg/dL (<=0.50)
== END 2024-12-26 11:20 | disposition home or self-care (01) ==
LOC: LBO 11:20
PROVIDERS: PCP Nurse Practitioner Family; Visit Provider Nurse Practitioner Family
DX: K92.1 Melena (principal); R19.5 Other fecal abnormalities; Z83.79 Family history of other diseases of the digestive system
CPT/HCPCS: 36415; 82784; 86140

== ENCOUNTER 2024-12-27 05:52 | Outpatient (REF) | payer MEDICAID, SELFPAY ==
[2024-12-31 13:03] LABS: Helicobacter pylori Ag, Feces Negative (Negative)
== END 2024-12-27 05:53 | disposition home or self-care (01) ==
LOC: LBN 05:52
PROVIDERS: PCP Nurse Practitioner Family; Visit Provider Nurse Practitioner Family
DX: K92.1 Melena (principal); R19.5 Other fecal abnormalities; Z83.79 Family history of other diseases of the digestive system
CPT/HCPCS: 87338; 83993